=== PATIENT | male | born 1995 | race Caucasian/White ===

== ENCOUNTER 2023-01-28 10:36 | Emergency (ER) | payer BC ==
[~2023-01-28] VITALS: Ht 175.3 cm; Wt 79.4 kg
[2023-01-28 11:41] VITALS: BP 115/65; TEMP 98.8; O2SAT 98
== END 2023-01-28 11:40 | disposition home or self-care (01) ==
LOC: ER 10:43
DX: S30.1XXA Contusion of abdominal wall, initial encounter (principal); Z60.2 Problems related to living alone; X58.XXXA Exposure to other specified factors, initial encounter; Y93.89 Activity, other specified; Y92.89 Other specified places as the place of occurrence of the external cause; Y99.8 Other external cause status
CPT/HCPCS: 71250-TC